=== PATIENT | female | born 1935 | race Caucasian/White ===

== ENCOUNTER 2018-03-28 22:21 | Observation (INO) ==
[2018-03-29] MEDS ORDERED: Naloxone 0.4 MG/ML INJ IVP PRN (03:43)
[2018-03-29] MEDS ORDERED: Ibuprofen 400 MG TABLET PO PRN (03:43)
[2018-03-29] MEDS ORDERED: 0.9 % Sodium Chloride 1,000 ML IVC ONE (03:49)
[2018-03-29 06:25] LABS: Hematocrit 37.9 % (35.3-44.9); Hemoglobin 12.2 g/dL (11.5-15.4); Mean Corpuscular HGB Conc 32.2 g/dL (31.6-35.5); Mean Corpuscular Hemoglobin 28.8 pg (28.0-33.3); Mean Corpuscular Volume 89.6 fL (83.0-100.0); Platelet Count 199 K/mcL (140-400); Red Blood Count 4.23 M/mcL (3.82-4.97); Red Cell Distribution Width 13.7 % (11.5-14.5)
[2018-03-29 06:45] LABS: Calcium 9.6 mg/dL (8.6-10.3); Potassium 3.9 mEq/L (3.5-5.1)
--- NOTE | 2018-03-29 08:57 | Internal Med History&Physical ---
Date of Encounter: 03/29/18 Time of Encounter: 01:00 Internal Medicine - H&P: HPI Chief complaint: Diarrhea, abdominal pain, UTI Admitted From: Home Plans for Post Hospital Care: Home History of present illness: Ms. Sanders is a 82 year old female Patient seen the [place] ER for continued abdominal pain and diarrhea for several months. She has been also experiencing dysuria as well for the last few days. On the day of admission she had multiple bowel movements, nearly causing a syncopal episode. In the ER at [place] a CT showed retroperitoneal fat stranding in left iliac fossa with extension inferiorly to the left inguinal region is non-specific and could represent area of fat necrosis though it appears to have some degree of mass effect. A recommendation of follow up MRI for complete eval was made. Dr. James was also contacted and agreed to see the patient in the morning. She was transferred to the [facility] for further management. She denies fever, and chest pain, but has experienced diarrhea, dizziness, nausea, vomiting and dysuria. She states that she has a history of blood in her stool a few months ago, but has not noticed any recently. Past Med Surg Social Fam HX - Past Medical History Medical history: hypertension Psychiatric history: no psych history - Past Surgical History Surgical History: cholecystectomy, hysterectomy, other Additional surgical history: partial lung removal due to lung cancer - Social History Smoking Status: Never smoker Smokeless Tobacco Status: No Alcohol use: none Drug use: none - Family History Father Hx Family Cardiac Disorders: Yes (heart disease) Mother Hx Family Cancer: Yes (lung cancer) Internal Medicine - H&P: Meds Ergocalciferol (VITAMIN D2) [Vitamin D2] 50,000 unit PO QWEEK 03/29/18 [History] Losartan/Hydrochlorothiazide [Losartan-Hctz 100-25 mg Tab] 1 tab PO QAM [History] 3 Allergy/AdvReac Type Severity Reaction Status Date / Time Opioids - Morphine Analogues Allergy Rash Verified 03/29/18 06:55 Penicillins Allergy Rash Verified 03/29/18 03:33 codeine AdvReac Hives Verified 03/29/18 06:55 All Systems PM: A 10-system review of systems was performed and is negative for pertinent findings except as documented above in the HPI. - Constitutional Vitals: Temp Pulse Resp BP Pulse Ox 98.9 F 79 18 153/80 96 03/29/18 06:21 03/29/18 06:21 03/29/18 06:21 03/29/18 06:21 03/29/18 07:46 General appearance: Present: mild distress, A&O X 3, pleasant - Eye Eye exam: Present: EOMI, normal appearance - Respiratory Respiratory exam: Present: CTAB. Absent: rales, respiratory distress - Cardiovascular Cardiovascular exam: Present: RRR. Absent: diastolic murmur, systolic murmur - GI/Abdominal GI/Abdominal exam: Present: soft. Absent: firm, hyperactive bowel sounds, hypoactive bowel sounds Additional comments: Tenderness in the left suprapubic and right lower quadrants with palpation. Normal bowel sounds heard. No distension. - Extremities Exam Extremities exam: Present: full ROM, warm. Absent: tenderness - Neurological Exam Neurological exam: Present: oriented X3, strengths equal and symetr throughout. Absent: speech deficit - Skin Skin exam: Present: dry, normal color Internal Med - H&P Results - Labs CBC & Chem 7: 03/29/18 05:58 03/29/18 05:58 Labs: Short CBC 03/29/18 Range/Units 05:58 WBC 9.5 (4.3-11.1) K/mcL Hgb 12.2 (11.5-15.4) g/dL Hct 37.9 (35.3-44.9) % Plt Count 199 (140-400) K/mcL BMP 03/29/18 05:58 Sodium 138 Potassium 3.9 Chloride 108 H Carbon Dioxide 22 L BUN 26 H Creatinine 1.13 Glucose 95 Calcium 9.6 - Assessment and plan (1) Abdominal pain Current Visit: Yes Status: Acute Assessment and plan: Patient has had abdominal pain for several months. Tenderness on exam in the lower quadrants. CT showed possible fat necrosis, with mass effect. MRI was recommended. I discussed the results of this CT with another radiologist who stated that it might be more beneficial to repeat the CT and see if the CT findings from the previous exam have improved or worsened. MRI may not be helpful in this case. Lactic acid not elevated, so likely not ischemia. Follow up surgery recommendations Ibuprofen for pain as requested by patient. Qualifiers: Qualified Code(s): R10.30 - Lower abdominal pain, unspecified (2) Diarrhea Current Visit: Yes Status: Acute Assessment and plan: Patient has had for 5 months. Has been seeing outpatient doctor, who tried imodium, but it has not worked. Stool panel Consider GI consult Contact precautions. Qualifiers: Qualified Code(s): R19.7 - Diarrhea, unspecified (3) Urinary tract infection Current Visit: Yes Status: Acute Assessment and plan: UA from [place] showed trace blood, small LE, positive nitrites and 3+ bacteria. Culture is indicated. Start patient on ceftriaxone. Does have allergy to penicillins, however should not have significant cross reaction. Discussed with pharmacy. Follow up results of urine culture. Qualifiers: Qualified Code(s): N39.0 - Urinary tract infection, site not specified; R31.9 - Hematuria, unspecified (4) Acute kidney injury Current Visit: Yes Status: Acute Assessment and plan: Mild, creatinine elevated to 1.25 on initial labs. IV fluid bolus Recheck in AM (5) Essential hypertension Current Visit: Yes Status: Acute Assessment and plan: Chronic, on medications outpatient. Hold while in the hospital, restart at discharge (6) DVT prophylaxis Current Visit: Yes Status: Acute Assessment and plan: SCDs - Time Spent With Patient Total time spent is greater than 50% in coordination of care (as documented) at patient's floor/unit and/or counseling patient: Greater than 35 minutes
[2018-03-29] MEDS ORDERED: cefTRIAXone 1,000 MG in Water for inj. (sterile) 20 ML 10 ML IVP SCH (09:00)
[2018-03-29] MEDS: Ringers Solution, Lactated 1,000 ML IVC SCH ×2 (09:25→19:45)
--- NOTE | 2018-03-29 10:49 | General Surgery Consult Note ---
Date of Encounter: 03/29/18 Time of Encounter: 07:30 Assessment and Plan (1) Abdominal pain Current Visit: Yes Status: Acute The patient has mild left lower quadrant abdominal pain she has mild fat stranding in the retroperitoneum of the left lower quadrant based on the outside CAT scan films and my interpretation. I do not see a discrete mass in this area. She does have a stool ball in the rectum and this should respond to digital decompression and disimpaction. No indication for surgery and no acute abdomen or acute colon obstruction. I would treat her as active diverticulitis at this point. We will be glad to follow along with you. Qualifiers: Abdominal location: left lower quadrant Qualified Code(s): R10.32 - Left lower quadrant pain History of Present Illness Consult date: 03/29/18 Reason for consult: other (Abnormal CAT scan) History of present illness: The patient seen and evaluated on rounds this morning. She has mild left lower quadrant abdominal pain. This been present for some time. Became acutely worse. She also has had 6 diarrhea stools. She had an abnormal CAT scan at the outside hospital. This was reported as fat stranding overlying the iliopsoas muscle in the left lower quadrant. So a stool ball in the rectum. The patient has no nausea or vomiting. She presented for worsening left lower quadrant abdominal pain. It took several hours to get a CAT scan downloaded into the PACS system. I personally reviewed the CAT scan. The fat stranding is very mild along the iliopsoas muscle in the retroperitoneum. I do not believe that this represents sarcoma. His to be fat stranding secondary to inflammation from diverticular disease or other nonspecific causes. I would recommend repeat CAT scan in 3 months. The patient does have a stool ball. She may be passing diarrhea stools around this buildup in the rectum. I spoke with her nursing recommended digital disimpaction. She may require some likes it from above to assist in emptying out the rectum. This may be part of her symptoms. There is no evidence of tumor or malignancy. No evidence of pathologic obstruction. I see no evidence of retroperitoneal mass or tumor Past Med Surg Social Fam HX - Past Medical History Medical history: hypertension Psychiatric history: no psych history - Past Surgical History Surgical History: cholecystectomy, hysterectomy, other Additional surgical history: partial lung removal due to lung cancer - Social History Smoking Status: Never smoker Smokeless Tobacco Status: No Alcohol use: none Drug use: none - Family History Father Hx Family Cardiac Disorders: Yes (heart disease) Mother Hx Family Cancer: Yes (lung cancer) Medications and Allergies Ergocalciferol (VITAMIN D2) [Vitamin D2] 50,000 unit PO QWEEK 03/29/18 [History] Losartan/Hydrochlorothiazide [Losartan-Hctz 100-25 mg Tab] 1 tab PO QAM [History] 3 Allergy/AdvReac Type Severity Reaction Status Date / Time Opioids - Morphine Analogues Allergy Rash Verified 03/29/18 06:55 Penicillins Allergy Rash Verified 03/29/18 03:33 codeine AdvReac Hives Verified 03/29/18 06:55 Review of Systems All systems PM: The remainder of the systems were reviewed and are negative General Surgery Exam Initial Vital Signs Pulse Ox 97 03/29/18 01:25 - General physical appearance well developed, well nourished, no distress - Respiratory normal expansion, normal respiratory effort, clear to percussion, clear to auscultation - Cardiovascular Cardiovascular exam: Present: RRR, no murmurs/rubs/gallops - Abdomen Abdomen general surgery: Present: bowel sounds present, soft (Mild tenderness to deep palpation. No evidence of guarding no evidence of rebound), tender Abdominal Tenderness: Present: LLQ - Neurologic Present: CN 2-12 grossly intact, normal coordination, normal sensation - Psychiatric Psychiatric general surgery: Present: appropriate, oriented to person, oriented to place, oriented to time, speech is normal, memory intact Exam Initial Vital Signs Pulse Ox 97 03/29/18 01:25 Results - Labs 03/29/18 05:58 03/29/18 05:58 Abnormal lab results Chloride 108 mEq/L (98-107) H 03/29/18 05:58 Carbon Dioxide 22 mEq/L (23-29) L 03/29/18 05:58 BUN 26 mg/dL (8-23) H 03/29/18 05:58 Est GFR ( Amer) 56 (> 60) L 03/29/18 05:58 Est GFR (Non-Af Amer) 46 (> 60) L 03/29/18 05:58 Diabetes panel 03/29/18 Range/Units 05:58 Sodium 138 (136-145) mEq/L Potassium 3.9 (3.5-5.1) mEq/L Chloride 108 H (98-107) mEq/L Carbon Dioxide 22 L (23-29) mEq/L BUN 26 H (8-23) mg/dL Creatinine 1.13 (0.60-1.20) mg/dL Glucose 95 (70-105) mg/dL Calcium 9.6 (8.6-10.3) mg/dL Calcium panel 03/29/18 Range/Units 05:58 Calcium 9.6 (8.6-10.3) mg/dL Pituitary panel 03/29/18 Range/Units 05:58 Sodium 138 (136-145) mEq/L Potassium 3.9 (3.5-5.1) mEq/L Chloride 108 H (98-107) mEq/L Carbon Dioxide 22 L (23-29) mEq/L BUN 26 H (8-23) mg/dL Creatinine 1.13 (0.60-1.20) mg/dL Glucose 95 (70-105) mg/dL Calcium 9.6 (8.6-10.3) mg/dL Adrenal panel 03/29/18 Range/Units 05:58 Sodium 138 (136-145) mEq/L Potassium 3.9 (3.5-5.1) mEq/L Chloride 108 H (98-107) mEq/L Carbon Dioxide 22 L (23-29) mEq/L BUN 26 H (8-23) mg/dL Creatinine 1.13 (0.60-1.20) mg/dL Glucose 95 (70-105) mg/dL Calcium 9.6 (8.6-10.3) mg/dL All other labs normal. - Imaging CT scan - abdomen: image reviewed (I personally reviewed the CAT scan of the abdomen. The fat stranding findings in the retroperitoneum on the left side quite mild. I do not see a discrete mass in this area. I would treat her clinical diverticulitis) Consult Discharge Plan - Plan Referrals: Brady Olson MD [Primary Care Provider] -
[2018-03-29] MEDS: MetroNIDAZOLE 500 MG/100 ML 500 MG/100 ML BAG IVPB SCH ×2 (16:19→23:10)
--- NOTE | 2018-03-29 18:52 | Event Note ---
Date of Encounter: 03/29/18 Time of Encounter: 09:00 Ms Sanders was admitted earlier today. She has been seen by surgery - has large rectal stool ball Received mag citrate. Continue plan as per admit.
[2018-03-30 05:53] LABS: Hematocrit 35.8 % (35.3-44.9); Hemoglobin 11.3 g/dL (11.5-15.4); Mean Corpuscular HGB Conc 31.6 g/dL (31.6-35.5); Mean Corpuscular Hemoglobin 28.5 pg (28.0-33.3); Mean Corpuscular Volume 90.2 fL (83.0-100.0); Mean Platelet Volume 10.8 fL (9.4-12.4); Platelet Count 187 K/mcL (140-400); Red Blood Count 3.97 M/mcL (3.82-4.97); Red Cell Distribution Width 14.1 % (11.5-14.5)
[2018-03-30 06:16] LABS: BUN/Creatinine Ratio 17 (6-26); Blood Urea Nitrogen 17 mg/dL (8-23); Calcium 9.4 mg/dL (8.6-10.3); Carbon Dioxide 22 mEq/L (23-29); Chloride 109 mEq/L (98-107); Glucose 90 mg/dL (70-105); Osmolality,Calculated 287 (280-300); Potassium 3.9 mEq/L (3.5-5.1); Sodium 138 mEq/L (136-145); eGFR For African Americans > 60 (> 60); eGFR For Non-African Americans 52 (> 60)
[2018-03-30] MEDS ORDERED: Milk and Molasses Enema 200 ML RC ONE ×2 (09:48→13:00)
[2018-03-30] MEDS: metroNIDAZOLE 500 MG TABLET PO SCH ×3 (11:18→19:53)
--- NOTE | 2018-03-30 12:37 | General Surgery Progress Note ---
<Waleska White - Last Filed: 03/30/18 12:44> Date of Encounter: 03/30/18 Time of Encounter: 12:37 - Assessment and Plan (1) Abdominal pain Current Visit: Yes Status: Acute As noted on 03/29/2018, patient has mild left lower quadrant abdominal pain she has mild fat stranding in the retroperitoneum of the left lower quadrant based on the outside CAT scan filmsper Dr. James's interpretation. No discrete mass in this area. She does have a stool ball in the rectum and digital impaction was attempted but unsuccessful. She has been placed on a bowel regimen including Mac citrate and milk molasses enemas. She stated her abdominal discomfort has completely resolved but she feels pressure in her rectum. She has had liquid bowel movements with the enemas. No indication for surgery and no acute abdomen or acute colon obstruction. She has refused replacement of peripheral IV and has been placed on by mouth antibiotics for her acute diverticulitis. Surgery would recommend continue clear liquid diet, advanced diet as tolerated and continued bowel regimen. We will follow from a distance. Please call with any further questions or needs. Qualifiers: Abdominal location: left lower quadrant Qualified Code(s): R10.32 - Left lower quadrant pain Subjective Patient reports: no new complaints, feels better, pain is less, voiding w/o difficulty, bowel movement, afebrile Narrative: Lili states her abdominal discomfort has significantly improved. She denies any further episodes of nausea or vomiting. She states she has had liquid bowel movements with the enemas. I did review with the bedside RN he states the patient has not passed a stool ball has yet nor had she passed solid stool. Objective Vital Signs - Last 8 Hours Temp Pulse Resp BP Pulse Ox 03/30/18 11:16 97.4 F L 64 16 145/73 98 03/30/18 07:30 97 03/30/18 07:16 97.5 F L 62 16 179/82 97 03/30/18 04:45 97.6 F 60 16 143/79 95 Intake and Output 03/29/18 03/30/18 03/30/18 23:59 07:59 15:59 Intake Total 1300 / 1300 400 / 400 600 / 600 Output Total 200 / 200 250 / 250 500 / 500 Balance 1100 / 1100 150 / 150 100 / 100 Intake: IV Fluids 1300 / 1300 400 / 400 Lactated Ringers 1,000 ML @ 75 1000 / 1000 300 / 300 mls/hr IVC .[id number] KRISHAN Rx#: [id number] Cipro Premix 400 MG/200 ML 400 200 / 200 mg In 200 ml @ 200 mls/hr IVPB Q12HR KRISHAN Rx#:[id number] Flagyl Premix 500 MG/100 ML 500 100 / 100 100 / 100 mg In 100 ml @ 100 mls/hr IVPB Q8HR KRISHAN Rx#:[id number] Oral 0 / 0 0 / 0 600 / 600 Output: Urine 200 / 200 250 / 250 200 / 200 Stool 300 / 300 Other: Meal Breakfast Stool Size Large Moderate Stool Consistency loose loose liquid Stool Color Brown Brown # Bowel Movements 2 Weight 76.9 kg Patient Weight 03/30/18 23:59 Weight 76.9 kg VITAL SIGNS: Reviewed. See [facility] GENERAL: In no apparent distress. HEENT: Normocephalic, atraumatic, pupils are equal and reactive, extraocular motions intact, oropharynx is pink and moist, there is no neck adenopathy or JVD noted. CHEST/RESPIRATORY: The thorax is free from signs of trauma. Lung sounds: clear to auscultation, normal respiratory effort CARDIAC: Regular rate and rhythm. Normal S1 and S2, without murmurs, gallops, or rubs. VASCULAR: No Edema. 2+ peripheral pulses. ABDOMEN: soft, nontender, active bowel sounds MUSCULOSKELETAL: Good range of motion of all major joints. Extremities without clubbing, cyanosis or edema. NEUROLOGIC EXAM: Alert and oriented x 3. Speech normal. Follows commands. PSYCHIATRIC: Mood normal. SKIN: No rash or lesions. - Labs 03/30/18 05:38 03/30/18 05:38 Diabetes panel 03/30/18 Range/Units 05:38 Sodium 138 (136-145) mEq/L Potassium 3.9 (3.5-5.1) mEq/L Chloride 109 H (98-107) mEq/L Carbon Dioxide 22 L (23-29) mEq/L BUN 17 (8-23) mg/dL Creatinine 1.01 (0.60-1.20) mg/dL Glucose 90 (70-105) mg/dL Calcium 9.4 (8.6-10.3) mg/dL Calcium panel 03/30/18 Range/Units 05:38 Calcium 9.4 (8.6-10.3) mg/dL Pituitary panel 03/30/18 Range/Units 05:38 Sodium 138 (136-145) mEq/L Potassium 3.9 (3.5-5.1) mEq/L Chloride 109 H (98-107) mEq/L Carbon Dioxide 22 L (23-29) mEq/L BUN 17 (8-23) mg/dL Creatinine 1.01 (0.60-1.20) mg/dL Glucose 90 (70-105) mg/dL Calcium 9.4 (8.6-10.3) mg/dL Adrenal panel 03/30/18 Range/Units 05:38 Sodium 138 (136-145) mEq/L Potassium 3.9 (3.5-5.1) mEq/L Chloride 109 H (98-107) mEq/L Carbon Dioxide 22 L (23-29) mEq/L BUN 17 (8-23) mg/dL Creatinine 1.01 (0.60-1.20) mg/dL Glucose 90 (70-105) mg/dL Calcium 9.4 (8.6-10.3) mg/dL - VTE Documentation of Mechanical Device: Intermittent pneumatic compression device Consult Discharge Plan - Plan Referrals: Brady Olson MD [Primary Care Provider] - 04/07/18 9:45 am <Gu[place]ito James - Last Filed: 03/30/18 13:41> Date of Encounter: 03/30/18 - Assessment and Plan (1) Abdominal pain Current Visit: Yes Status: Acute Qualifiers: Abdominal location: left lower quadrant Qualified Code(s): R10.32 - Left lower quadrant pain Objective Vital Signs - Last 8 Hours Temp Pulse Resp BP Pulse Ox 03/30/18 11:16 97.4 F L 64 16 145/73 98 03/30/18 07:30 97 03/30/18 07:16 97.5 F L 62 16 179/82 97 Intake and Output 03/29/18 03/30/18 03/30/18 23:59 07:59 15:59 Intake Total 1300 / 1300 400 / 400 840 / 840 Output Total 200 / 200 250 / 250 500 / 500 Balance 1100 / 1100 150 / 150 340 / 340 Intake: IV Fluids 1300 / 1300 400 / 400 Lactated Ringers 1,000 ML @ 75 1000 / 1000 300 / 300 mls/hr IVC .[id number] KRISHAN Rx#: [id number] Cipro Premix 400 MG/200 ML 400 200 / 200 mg In 200 ml @ 200 mls/hr IVPB Q12HR KRISHAN Rx#:[id number] Flagyl Premix 500 MG/100 ML 500 100 / 100 100 / 100 mg In 100 ml @ 100 mls/hr IVPB Q8HR KRISHAN Rx#:[id number] Oral 0 / 0 0 / 0 840 / 840 Output: Urine 200 / 200 250 / 250 200 / 200 Stool 300 / 300 Other: Meal Clears Stool Size Large Moderate Stool Consistency loose loose liquid Stool Color Brown Brown # Bowel Movements 2 Weight 76.9 kg Patient Weight 03/30/18 23:59 Weight 76.9 kg - Labs 03/30/18 05:38 03/30/18 05:38 Diabetes panel 03/30/18 Range/Units 05:38 Sodium 138 (136-145) mEq/L Potassium 3.9 (3.5-5.1) mEq/L Chloride 109 H (98-107) mEq/L Carbon Dioxide 22 L (23-29) mEq/L BUN 17 (8-23) mg/dL Creatinine 1.01 (0.60-1.20) mg/dL Glucose 90 (70-105) mg/dL Calcium 9.4 (8.6-10.3) mg/dL Calcium panel 03/30/18 Range/Units 05:38 Calcium 9.4 (8.6-10.3) mg/dL Pituitary panel 03/30/18 Range/Units 05:38 Sodium 138 (136-145) mEq/L Potassium 3.9 (3.5-5.1) mEq/L Chloride 109 H (98-107) mEq/L Carbon Dioxide 22 L (23-29) mEq/L BUN 17 (8-23) mg/dL Creatinine 1.01 (0.60-1.20) mg/dL Glucose 90 (70-105) mg/dL Calcium 9.4 (8.6-10.3) mg/dL Adrenal panel 03/30/18 Range/Units 05:38 Sodium 138 (136-145) mEq/L Potassium 3.9 (3.5-5.1) mEq/L Chloride 109 H (98-107) mEq/L Carbon Dioxide 22 L (23-29) mEq/L BUN 17 (8-23) mg/dL Creatinine 1.01 (0.60-1.20) mg/dL Glucose 90 (70-105) mg/dL Calcium 9.4 (8.6-10.3) mg/dL - Attending Attestation I have personally performed a face to face evaluation on this patient. I have reviewed and agree with the care plan. History and Exam by me shows: The patient is seen and evaluated on morning rounds and her care discussed the clinical nurse practitioner. The mild fat stranding left lower quadrant just be followed with CAT scan at 3 month interval. She should be treated as active diverticulitis. She does have a stool ball in the rectum that should respond to laxative therapy.
--- NOTE | 2018-03-30 18:13 | Internal Med Progress Note ---
Date of Encounter: 03/30/18 Time of Encounter: 07:50 - Assessment and plan (1) Urinary tract infection Current Visit: Yes Status: Acute Assessment and plan: On abx. Qualifiers: Urinary tract infection type: acute cystitis Hematuria presence: without hematuria Qualified Code(s): N30.00 - Acute cystitis without hematuria (2) Obstipation Current Visit: Yes Status: Acute Assessment and plan: Enemas ordered for today. (3) Diverticulitis Current Visit: Yes Status: Acute Assessment and plan: On PO Cipro and Flagyl. Will complete a weak. (4) Essential hypertension Current Visit: Yes Status: Chronic Assessment and plan: Continue meds. - Time Spent With Patient Total time spent is greater than 50% in coordination of care (as documented) at patient's floor/unit and/or counseling patient: - Subjective Interval history: Ms Sanders is currently in observation for stool impaction and abd pain. She remains moderate risk at this time. Ms Sanders has passed liquid stool but no solid ball. Abd pain has improved some. No fever or chills. No CP or SOB. - Constitutional Vitals: Temp Pulse Resp BP Pulse Ox 97.7 F 64 18 147/71 99 03/30/18 15:56 03/30/18 15:56 03/30/18 15:56 03/30/18 15:56 03/30/18 15:56 General appearance: Present: A&O X 3, pleasant - Head Head exam: Present: normocephalic - Eye Eye exam: Present: conjuntiva pink - ENT ENT exam: Present: mucous membranes dry - Respiratory Respiratory exam: Present: CTAB. Absent: rhonchi, wheezes - Cardiovascular Cardiovascular exam: Present: RRR. Absent: tachycardia - GI/Abdominal GI/Abdominal exam: Present: soft. Absent: tenderness - Extremities Exam Extremities exam: Present: warm. Absent: tenderness - Neurological Exam Neurological exam: Present: alert, oriented X3, no focal deficits - Skin Skin exam: Present: dry, warm Internal Medicine: Result - Labs CBC & Chem 7: 03/30/18 05:38 03/30/18 05:38 Labs: Short CBC 03/30/18 Range/Units 05:38 WBC 6.1 (4.3-11.1) K/mcL Hgb 11.3 L (11.5-15.4) g/dL Hct 35.8 (35.3-44.9) % Plt Count 187 (140-400) K/mcL [facility] 03/30/18 05:38 Sodium 138 Potassium 3.9 Chloride 109 H Carbon Dioxide 22 L BUN 17 Creatinine 1.01 Glucose 90 Calcium 9.4 - VTE Documentation of Mechanical Device: Intermittent pneumatic compression device Consult Discharge Plan - Plan Referrals: Brady Olson MD [Primary Care Provider] - 04/07/18 9:45 am
[2018-03-31] MEDS ORDERED: Losartan/HCTZ 50-12.5 TABLET PO SCH (09:00)
[2018-03-31] MEDS: metroNIDAZOLE 500 MG TABLET PO SCH (09:32)
[2018-03-31 11:31] VITALS: BP 156/81
[2018-03-31] MEDS ORDERED: Bisacodyl 10 MG RECTAL SUPPOSITORY RC STA (11:42)
--- NOTE | 2018-03-31 13:25 | Event Note ---
Date of Encounter: 03/31/18 Time of Encounter: 13:23 Obtained 2V abdominal x-ray: FINDINGS: A large amount of air seen within the colon. No bowel obstruction present. No free air or significant air-fluid level. Clips from prior cholecystectomy. No worrisome abnormal calcification. No stool appreciated. XR/XR abdomen 2V IMPRESSION: No acute abdominal abnormality. No evident stool. Would recommended continued daily miralax until daily BMs that are mashed potatoes consistency, then decrease MiraLAX to every other day, until daily bowel movements that are not painful, then may take the MiraLAX as needed. Surgery will sign off at this time. Thank you for allowing us to participate in Lili's care. Please reconsult if questions or needs arise.
--- NOTE | 2018-03-31 14:12 | Discharge Summary ---
- NOTES TO OUTPATIENT PROVIDER Notes to Outpatient Provider: Ms Sanders was admitted for UTI and concern for diverticulitis. She was treated with abx. She also was noted to have significant rectal "stool ball" and this was aggressively managed with meds. Needs repeat CT in 3 months. Date of Encounter: 03/31/18 Time of Encounter: 14:10 - Discharge Diagnosis (1) Urinary tract infection Priority: Primary Status: Acute Assessment and Plan: On abx. Qualifiers: Urinary tract infection type: acute cystitis Hematuria presence: without hematuria Qualified Code(s): N30.00 - Acute cystitis without hematuria (2) Obstipation Priority: Secondary Status: Resolved (3) Diverticulitis Priority: Secondary Status: Acute (4) Essential hypertension Priority: Secondary Status: Chronic Hospital course: Ms. Sanders is a 82 year old female presented to ED with lower abdominal pain. She was evaluated and CT showed concern for fat necrosis. She was subsequently admitted. Ms Sanders was admitted with abd pain. She was evaluated by surgery and placed on abx for possible acute diverticulitus. She had a large stool ball in rectum and had multiple treatments including enemas. Today she had xray which showed improvement in stool. She is afebrile and feels at baseline. She is ready for discharge home. She will complete a week of abx and needs to follow up and have repeat CT in 3 months. Discharge discussed with: patient, family - Time Spent with Patient Total time spent providing and/or coordinating discharge services: - Discharge Medications Prescriptions: Ciprofloxacin [Cipro] 500 mg PO BID #11 tablet metroNIDAZOLE [Flagyl] 500 mg PO TID #17 tablet Polyethylene Glycol 3350 [MiraLAX Powder Bulk 17.9 Oz] 1 scoop PO DAILY 30 Days #510 gm Home Medications: Ergocalciferol (VITAMIN D2) [Vitamin D2] 50,000 unit PO QWEEK 03/29/18 [History] Losartan/Hydrochlorothiazide [Losartan-Hctz 100-25 mg Tab] 1 tab PO QAM [History] Ciprofloxacin [Cipro] 500 mg PO BID #11 tablet 03/31/18 [Rx] Docusate [Colace] 100 mg PO BID capsule 03/31/18 [Rx] Polyethylene Glycol 3350 [MiraLAX Powder Bulk 17.9 Oz] 1 scoop PO DAILY 30 Days #510 gm 03/31/18 [Rx] metroNIDAZOLE [Flagyl] 500 mg PO TID #17 tablet 03/31/18 [Rx] Allergies/Adverse Reactions: 3 Allergy/AdvReac Type Severity Reaction Status Date / Time Opioids - Morphine Analogues Allergy Rash Verified 03/29/18 06:55 Penicillins Allergy Rash Verified 03/29/18 03:33 codeine AdvReac Hives Verified 03/29/18 06:55 Date of admission: 03/29/18 01:04 Primary care physician: Brady Olson, Consults: 03/29/18 03:35 Consult to Nutrition [CONS] Routine Comment: Consulting Provider: NUTRITION Reason for Dietary Consult: MST Score 03/29/18 08:36 Consult to Surgery [CONS] Routine Consulting Provider: [facility] Reason for Consult: Abdominal CT showed possible fat necrosis, recommended MRI, Dr. James called from ER Call Completed: Yes 03/30/18 05:56 Consult to Invasive Line Access Team [CONS] Routine Reason for Consult: No peripheral IV access. Line Type: EPIV PICC line indications: Limited vascular access Time Notified: 05:57 Call Completed: No Discharging clinician: Prosper Harmon Anticipated date of discharge: 03/31/18 - Constitutional Vitals: Temp Pulse Resp BP Pulse Ox 97.6 F 68 14 156/81 98 03/31/18 11:30 03/31/18 11:30 03/31/18 11:30 03/31/18 11:30 03/31/18 11:30 General appearance: Present: A&O X 3, pleasant, answers questions appropriately - Head Head exam: Present: normocephalic - Eye Eye exam: Present: conjuntiva pink - ENT ENT exam: Present: mucous membranes moist - Respiratory Respiratory exam: Present: CTAB. Absent: rales, rhonchi, wheezes - Cardiovascular Cardiovascular exam: Present: RRR. Absent: tachycardia - GI/Abdominal GI/Abdominal exam: Present: soft. Absent: tenderness - Extremities Exam Extremities exam: Present: warm. Absent: tenderness - Neurological Exam Neurological exam: Present: alert, oriented X3 - Skin Skin exam: Present: dry, warm - Patient Status Disposition: Home, Self-Care Condition: Good Functional capacity at discharge: independent ambulation Overall status at discharge: patient is progressing back to baseline - Discharge Instructions Instructions: Diverticulitis (DC), Urinary Tract Infection in Women (DC), Chronic Hypertension (DC) Follow Up With: Brady Olson MD [Primary Care Provider] - 04/07/18 9:45 am - Diet and Activity Activity: increase activity as tolerated Diet: advance to your usual diet - VTE Documentation of Mechanical Device: Intermittent pneumatic compression device
== END 2018-03-31 15:57 | disposition home or self-care (01) ==
LOC: 2SOUTHHOLD → SUATTDRO 03-29 01:04 → 3ANU 03-29 01:24
PROVIDERS: ADMIT Family Medicine; ATTEND Internal Medicine